=== PATIENT | male | born 1960 | race Caucasian/White ===

== ENCOUNTER 2021-09-18 11:57 | Inpatient (IN) | payer BC, MEDICAID ==
[~2021-09-18] VITALS: Ht 180.3 cm; Wt 108.9 kg
[~2021-09-18 11:57] MED LIST: ATORVASTATIN CA20 MG PO; BRILINTA 90 MG90 MG PO; DEPO-TESTO200 MG/1 M IM; ECOTRIN81 MG PO; GARLIC1 EAC1 PO; IMDUR ER TAB 3030 MG PO; LIPITOR TAB 2020 MG PO; LISINOPRIL10 MG PO; LOPRESSOR 25 MG25 MG PO; NITROGLYCERIN0.4 MG SL; NORVASC 5 MG TAB5 MG PO; PRINIVIL20 MG PO
[2021-09-18 15:33] LABS: HEMOGLOBIN 15.7 gm/dl (14.0-17.5); RED BLOOD COUNT 5.09 M/UL (4.20-5.50); WHITE BLOOD COUNT 8.3 K/UL (4.5-11.0)
[2021-09-18 16:06] LABS: BUN/CREATININE RATIO 24 (0-10)
[2021-09-19 07:37] LABS: BUN/CREATININE RATIO 23 (0-10)
[2021-09-19 10:10] LABS: HEMOGLOBIN 13.3 gm/dl (14.0-17.5); RED BLOOD COUNT 4.48 M/UL (4.20-5.50); WHITE BLOOD COUNT 4.3 K/UL (4.5-11.0)
[2021-09-19] MEDS ORDERED: DECADRON6 MG PO (11:03)
[2021-09-19] MEDS ORDERED: METOPROLOL TART25 MG PO (12:05)
[2021-09-19] MEDS ORDERED: LISINOPRIL20 MG PO (12:06)
[2021-09-19] MEDS ORDERED: IBU800 MG PO (12:07)
[2021-09-19] MEDS ORDERED: PROTONIX 40 MG40 M1 PO (12:07)
[2021-09-19] MEDS ORDERED: CRESTOR40 MG PO (12:07)
[2021-09-19] MEDS ORDERED: VITAMIN D325 MC6 PO (12:08)
[2021-09-19] MEDS ORDERED: MULTIVITAMIN1 EACH PO (12:08)
[2021-09-19] MEDS ORDERED: ELDERBERRY-VIT1 EACH PO (12:08)
[2021-09-19] MEDS ORDERED: CO Q-10100 MG PO (12:08)
[2021-09-20 06:52] LABS: HEMOGLOBIN 12.5 gm/dl (14.0-17.5); RED BLOOD COUNT 4.11 M/UL (4.20-5.50)
[2021-09-20 06:59] LABS: WHITE BLOOD COUNT 8.7 K/UL (4.5-11.0)
[2021-09-20 07:27] LABS: BUN/CREATININE RATIO 20 (0-10)
--- NOTE | 2021-09-20 08:00 | NUR ---
PATIENT AMBULATED WITHOUT O2 AND SAT WAS 87%
== END 2021-09-20 11:00 | disposition home or self-care (01) | DRG 177 ==
LOC: ER1 11:57 → MED SURG 4 17:21 → CDU 17:21 → MED SURG 4 23:18
PROVIDERS: Physician Assistant; ADMIT Internal Medicine
PROC: 3E0333Z Introduction of Anti-inflammatory into Peripheral Vein, Percutaneous Approach (ICD-10-PCS; principal; 2021-09-18)
PROC: 8E0ZXY6 Isolation (ICD-10-PCS; 2021-09-18)
PROC: XW033E5 Introduction of Remdesivir Anti-infective into Peripheral Vein, Percutaneous Approach, New Technology Group 5 (ICD-10-PCS; 2021-09-18)
DX: U07.1 COVID-19 (principal); J96.01 Acute respiratory failure with hypoxia; J12.82 Pneumonia due to coronavirus disease 2019; I25.10 Atherosclerotic heart disease of native coronary artery without angina pectoris; E66.9 Obesity, unspecified; I10 Essential (primary) hypertension; E78.5 Hyperlipidemia, unspecified; Z79.82 Long term (current) use of aspirin; Z95.5 Presence of coronary angioplasty implant and graft; Z88.6 Allergy status to analgesic agent; Z68.33 Body mass index [BMI] 33.0-33.9, adult
CPT/HCPCS: 36415; 36600; 71045; 80048; 80053; 82550; 82553; 82728; 82803; 83540; 83550; 83605; 83735; 83874; 83880; 84484; 85025; 85027; 85379; 86140; 87040; 93005; 94640; 94664; 94760; 99285; J0696; J1100; J1650; J2405; J2543; J7030; J7040; Q9967

== ENCOUNTER → 2022-01-25 | Outpatient (CLI) | payer BC ==
[~2022-01-25] MED LIST changes: +CO Q-10100 MG PO; +CRESTOR40 MG PO; +DECADRON6 MG PO; +ELDERBERRY-VIT1 EACH PO; +IBU800 MG PO; +LISINOPRIL20 MG PO; +METOPROLOL TART25 MG PO; +MULTIVITAMIN1 EACH PO; +PROTONIX 40 MG40 M1 PO; +VITAMIN D325 MC6 PO
== END ==
LOC: RAD 11:35
DX: R06.02 Shortness of breath (principal); Z86.16 Personal history of COVID-19
CPT/HCPCS: 71046

== ENCOUNTER → 2022-01-25 | Outpatient (CLI) | payer BC | LOC: HEART 5 10:05 | DX: R06.02 Shortness of breath (principal); Z86.16 Personal history of COVID-19; R94.2 Abnormal results of pulmonary function studies | CPT/HCPCS: 94060; 94729 ==